=== PATIENT | female | born 1950 | race Two or more races ===

== ENCOUNTER 2025-02-12 12:52 | Emergency (ER) | payer MEDICARE, MEDICAID, SELFPAY ==
[2025-02-12] VITALS (7 sets, daily range): BP systolic 118–149; BP diastolic 61–76; PULSE 64–85; RESP 16–18; TEMP 36.6–36.8; O2SAT 96–100; BMI 24.3
--- NOTE | 2025-02-12 14:03 | XR_ITS ---
Examination: CT abdomen with intravenous contrast CT pelvis with intravenous contrast 2-D coronal reconstructions 2-D sagittal reconstructions Date and time of exam:February 12, 2025, 1601 hours Comparison February 21, 2024 INDICATIONS: Onset abdominal pain today. CTDI: vol (mGy) 6.5 DLP: (mGycm) 306 Technique: Multiple axial sections of the abdomen and pelvis have been obtained. 64 slice high-resolution scanner used. 3 mm axial sections have been obtained, post intravenous injection 60 cc of Isovue 370 2-D sagittal, coronal reconstructions obtained. Low dose protocols were performed. One or more of the following dose reduction techniques were used; automated exposure control, adjustment of the mA and/or KV according to patient size, use of iterative reconstruction technique. Findings: Hepatomegaly 19 cm Multiple liver cysts. No intrahepatic biliary tract dilatation Spleen is not enlarged No gallstones No pancreatic mass No adrenal mass No renal or ureteral calculi, no hydronephrosis No bowel obstruction No pericecal inflammatory change, normal appendix coronal image 66 No bowel obstruction Scattered colonic diverticulosis, no diverticulitis Urinary bladder is intact Absent uterus Advanced degenerative disc disease L4-L5 IMPRESSION: Hepatomegaly, 19 cm No renal or ureteral calculi, no hydronephrosis No bowel obstruction Normal appendix No diverticulitis Advanced degenerative disc disease L4-L5
--- NOTE | 2025-02-12 14:04 | XR_ITS ---
Examination: Abdomen sonogram, Limited Date and time of exam: February 12, 2025 1456 hrs. Indications: Onset abdominal pain today Technique: Real-time mariscal scale transabdominal sonographic images of the upper abdomen obtained. Findings: Normal gallbladder Normal common bile duct 0.2 cm Pancreatic head 2.1 cm Liver 16.1 cm liver cysts, the largest in the right lobe 3.6 cm Normal hepatopedal portal venous oh Patent IVC Impression: Normal gallbladder Normal common bile duct
--- NOTE | 2025-02-12 14:04 | EKG_ITS ---
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
--- NOTE | 2025-02-12 14:05 | EDNOTE_ITS ---
ED Abdominal Pain RME/HPI General Chief Complaint: Abdominal Pain Stated complaint: Abdominal pain, vomiting Time seen by provider: 02/12/25 13:16 Arrival date/time: 02/12/25 12:52 RME / HPI RME / HPI narrative: 74-year-old female patient with significant history of hypertension, came in for evaluation regarding abdominal pain. Patient has been having abdominal pain since 1:00 this morning, described as diffuse, severity moderate associated with 2 episode of vomiting. Patient also had 2 episode of diarrhea. Nonbloody. Denies any fever denies any shortness of breath denies any other complaints no medications taken prior to arrival. Patient had endoscopy done 3 weeks ago in [place]. No results called yet. Abdominal surgery include hysterectomy Related Data Previous Rx's ?Medication ?Instructions ?Recorded cefuroxime axetil 500 mg tablet 500 mg PO BID #14 tabs 02/12/23 dicyclomine 20 mg tablet 20 mg PO QID PRN abdominal p ain 02/21/24 #14 tabs cefdinir 300 mg capsule 300 mg PO BID #14 caps 02/12 dicyclomine 20 mg tablet 20 mg PO QID PRN abdominal p ain 02/12/25 #30 tabs polyethylene glycol 3350 17 4 g PO QDAY #238 grams gram/dose oral powder (Miralax) Allergies Allergy/AdvReac Type Severity Reaction Status Date / Time codeine Allergy Mild Difficulty Verified 02/12/25 12:58 Swallowing acetaminophen (From Tylenol) Allergy Verified 02/12/25 12:58 Review of Systems Review of Systems Narrative Review of Systems: Review of system reviewed and within normal limits except mentioned in HPI ED Exam Narrative Physical exam: VITAL SIGNS: Reviewed. GENERAL APPEARANCE: Alert and interactive, follows commands, no acute distress, HEAD AND FACE: Non-traumatic. ENT: PERRL, pink conjunctivitis, eyelid no trauma, Mucous membrane moist. NECK: Supple, nontender, no nuchal rigidity. CHEST: No tenderness, no crepitus, no paradoxical movement, no retractions. LUNGS: Clear, well ventilated, symmetric, no rales, no wheezing, no ronchi, no stridor, good breath sounds bilaterally. HEART: Regular rate, regular rhythm, no murmur, no gallops. ABDOMEN: Soft, positive bowel sounds, nondistended, no guarding, diffuse tenderness, no rebound, no masses, RECTAL: Deferred. GENITAL: Deferred. NEUROLOGICAL: Gross motor function intact sensory function intact, Appropriate for age. MUSCULOSKELETAL: low back nontender, full range of motion. EXTREMITIES: Nontender, full range of motion. SKIN: Color pink, dry, no rash, no lacerations, no abrasions, no contusions. LYMPHATICS: Deferred. Course Quality Measures none Orders Category Date Time Status CT Screening NOW Care 02/12/25 14:04 Active EKG (ED ONLY) *Do not use* NOW Care 02/12/25 14:[address] abdomen pelvis w con Stat Exams 02/12/25 14:03 Completed EKG (ED Only) Stat Exams 02/12/25 14:04 Draft US gall bladder Stat Exams 02/12/25 14:04 Completed CBC Stat Lab 02/12/25 14:15 Completed Comprehensive Metabolic Panel Stat Lab 02/12/25 14:15 Completed Lipase Stat Lab 02/12/25 14:15 Completed Partial Thromboplastin Time Stat Lab 02/12/25 14:15 Completed Prothrombin Time with INR Stat Lab 02/12/25 14:15 Completed UA, C/S IF [Urinalysis, C/S if Indicated] Stat Lab 02/12/25 14:55 Completed Urine Culture Stat Lab 02/12/25 14:55 Received HYDROmorphone INJ [Dilaudid Inj] Med 02/12/25 17:48 Discontinued 1 mg IVP X1 ONE Ketorolac Inj [Toradol Inj] Med 02/12/25 14:04 Discontinued 15 mg IVP X1 ONE Ondansetron Inj [Zofran Inj] Med 02/12/25 14:04 Discontinued 4 mg IVP X1 ONE cefTRIAXone/D5w 1gm IV premix [Rocephin/D5w 1gm IV Med 02/12/25 17:47 Discontinued premix] 1 gm in 50 ml IV X1 Vital Signs Vital signs: Vital Signs Temperature 98.2 F 02/12/25 13:50 Pulse Rate 85 02/12/25 13:50 Respiratory Rate 16 02/12/25 13:50 Blood Pressure 133/76 H 02/12/25 13:50 Pulse Oximetry (%) 99 02/12/25 13:50 Oxygen Delivery Method Room Air 02/12/25 13:50 Abdominal Pain MDM MDM Narrative MDM Narrative:: 74-year-old female patient with significant history of hypertension, came in for evaluation regarding abdominal pain. Patient has been having abdominal pain since 1:00 this morning, described as diffuse, severity moderate associated with 2 episode of vomiting. Patient also had 2 episode of diarrhea. Nonbloody. Denies any fever denies any shortness of breath denies any other complaints no medications taken prior to arrival. Patient had endoscopy done 3 weeks ago in [place]. No results called yet. Abdominal surgery include hysterectomy EKG as interpreted by me showed sinus rhythm, ventricular to 79 bpm, no ST segment elevation or depression noted. Laboratory Is significant for slight leukocytosis, urinalysis positive for UTI lipase normal ultrasound the gallbladder came back unremarkable CT scan of the abdomen pelvis showed Hepatomegaly, 19 cm No renal or ureteral calculi, no hydronephrosis No bowel obstruction Normal appendix No diverticulitis Advanced degenerative disc disease L4-L5 Patient was given , ceftriaxone IV Dilaudid and Toradol with significant pelvic pain. Patient data External records reviewed:: None Clinical information provided by:: patient Social determinants that could affect healthcare access:: none Patient has the following chronic illnesses:: Hypertension How is presenting disease/condition affected by chronic disease/condition?: no chronic disease Evaluation data The following diagnostics were reviewed and interpreted by me:: lab results, radiology exam(s) and EKG tracing(s) Lab and/or radiology exams considered but not ordered:: None Interpretation Summary: See results [facility] Medications / Prescriptions Medications or Prescriptions considered but not ordered:: None Medication administrations:: Medication Administration History Discontinued Medications Hydromorphone HCl (Hydromorphone Inj 2 Mg/Ml Vial) 1 mg IVP X1 ONE Stop: 02/12/25 17:49 Last Admin: 02/12/25 17:54 Dose: 1 mg Documented By: VL Ceftriaxone Sodium/Dextrose (Rocephin/D5w 1gm Iv Premix) 1 gm in 50 mls @ 100 mls/hr IV X1 ONE Stop: 02/12/25 18:16 Last Infusion: 02/12/25 18:24 Dose: Infused Documented By: Admin: 02/12/25 17:54 Dose: 100 mls/hr Documented By: LINDSAY Ketorolac Tromethamine (Ketorolac Inj 30 Mg/Ml Vial) 15 mg IVP X1 ONE Stop: 02/12/25 14:05 Last Admin: 02/12/25 15:35 Dose: 15 mg Documented By: EF Ondansetron HCl (Ondansetron Inj 2 Mg/Ml Inj 2 Ml) 4 mg IVP X1 ONE; Protocol Stop: 02/12/25 14:05 Last Admin: 02/12/25 15:36 Dose: 4 mg Documented By: EF Dilaudid, Toradol, ceftriaxone and IV Zofran Consultations Consultation(s) initiated? (list below): No Consultation #1 (Physician, Specialty, Details): None Diagnosis Differential diagnosis abdominal pain: abdominal pain and diverticulitis Most likely diagnosis given after review of the tests above:: UTI, abdominal pain Admission Indicated Admission indicated?: not indicated Explain why admission is indicated or not indicated:: None Admission Request Was there a request for admission?: No Disposition Plan Disposition Plan: Discharge Discharge Attestation Discharge Attestation: The patient and all family members were given an opportunity to ask questions and understood the discharge instructions. Discharge instructions specifically effects, indications for sooner follow up or return to the emergency department, and the expected course of current diagnosis. Patient condition: Stable Discharge Plan Plan Patient Disposition: HOME (Self Care) Discharge Disposition comment: Stable Prescriptions/Referrals Prescriptions/Med Rec: New cefdinir 300 mg capsule 300 mg PO BID Qty: 14 0RF dicyclomine 20 mg tablet 20 mg PO QID PRN (Reason: abdominal pain) Qty: 30 0RF polyethylene glycol 3350 [Miralax] 17 gram/dose powder 4 g PO QDAY Qty: 238 0RF No Action cefuroxime axetil 500 mg tablet 500 mg PO BID Qty: 14 0RF dicyclomine 20 mg tablet 20 mg PO QID PRN (Reason: abdominal pain) Qty: 14 0RF Referrals: Arline Huynh FNP ([facility]) [Primary Care Provider] - In 1 week Problem List Clinical Impression: Abdominal pain, UTI (urinary tract infection) Patient/Caregiver Discharge Instructions Discharge Activity: activity as tolerated Education Materials: Abdominal Pain Additional Instructions: Thank you for the opportunity for serving you today. You are stable for discharged . You are advised to: Follow-up with your PCP in 1 to 2 days Return to ED for worsening of symptoms Increase oral fluids Take medication as prescribed Print Language: Marshallese Stand Alone Forms: Divine Award Info., Patient Portal Info Letter CURT/CHRISTOPHER Supervising Physician PA/ROOFER HELPER Supervising Physician: MD Patti
[2025-02-12 14:24] LABS: Basophils # (Auto) 0.1 Thou/mm3 (0.0-0.2); Basophils % (Auto) 1 % (0-2.5); Eosinophils # (Auto) 0.1 Thou/mm3 (0.0-0.5); Eosinophils % (Auto) 0 % (0-10); Hematocrit 34.1 % (36.0-46.0); Hemoglobin 11.4 g/dL (12.0-16.0); Immature Granulocytes % (Auto) 0 % (0-0); Immature Granulocytes Auto 0.05 Thou/mm3 (0.00-0.00); Lymphocytes % (Auto) 9 % (10-50); Mean Corpuscular HGB Conc 33.4 g/dl (31.0-37.0); Mean Corpuscular Hemoglobin 29.6 pg (25.0-35.0); Mean Corpuscular Volume 89 fL (80-100); Monocytes # (Auto) 0.9 Thou/mm3 (0.0-0.8); Monocytes % (Auto) 7 % (0-12); Neutrophils # (Auto) 9.4 Thou/mm3 (1.8-7.7); Neutrophils % (Auto) 82 % (37-80); Nucleated Red Blood Cell % 0 /100 WBC (0); Platelet Count 278 Thou/mm3 (140-440); Red Blood Count 3.85 Miln/mm3 (4.00-5.20); White Blood Count 11.5 Thou/mm3 (3.6-11.0)
[2025-02-12 14:39] LABS: Partial Thromboplastin Time 22.6 Seconds (22.0-36.0); Prothrombin Time 11.2 Seconds (9.0-12.2)
[2025-02-12 14:42] LABS: Alanine Aminotransferase 17 U/L (10-49); Albumin, Serum 4.8 gm/dL (3.4-4.8); Albumin/Globulin Ratio 1.8 (1.2-2.2); Alkaline Phosphatase 65 U/L (46-116); Anion Gap 9 (7-16); Aspartate Amino Transferase 19 U/L (0-34); BUN/Creatinine Ratio 21 Ratio (12-20); Bilirubin,Total 0.5 mg/dL (0.3-1.2); Blood Urea Nitrogen 17 mg/dL (9-23); Calcium 9.3 mg/dL (8.3-10.6); Calcium (Corrected) 9.3 mg/dL (8.5-10.1); Chloride 105 mMol/L (98-107); Creatinine (Component) 0.8 mg/dL (0.6-1.3); Estimated Creatinine Clearance 51.7 mL/min (>60); Globulin 2.6 gm/dL (2.3-3.5); Glucose 107 mg/dL (74-106); Lipase 38 U/L (12-53); Osmolality,Calculated 280 (275-295); Potassium 4.5 mMol/L (3.4-5.1); Sodium 140 mMol/L (136-145); Total Protein 7.4 gm/dL (5.7-8.2); eGFR > 60 See Note
[2025-02-12 15:04] LABS: Collection Type, Urine Clean Catch
[2025-02-12 15:17] LABS: Bilirubin,Urine Negative (Negative); Blood,Urine Negative (Negative); Clarity,Urine Clear (Clear/Hazy); Color,Urine Yellow (Lt Yel-Yel); Glucose, Urine Negative (Negative); Ketones,Urine Negative (Negative); Leukocyte Esterase,Urine Positive (Negative); Nitrite,Urine Negative (Negative); Protein,Urine Negative (Neg - Trace); RBC,Urine 4 /hpf (0-3); Specific Gravity,Urine 1.025 (1.001-1.035); Squamous Epithelial Cell,Urine < 1 /hpf (0-5); Urobilinogen,Urine Negative mg/dL (0.0-1.0); WBC,Urine 19 /hpf (0-5)
[2025-02-12 15:21] LABS: Culture Indicated,Urine Yes
[2025-02-12] MEDS: KETOROLAC INJ 30 MG/ML VIAL 15 MG IVP (15:35)
[2025-02-12] MEDS: ONDANSETRON INJ 2 MG/ML INJ 2 ML 4 MG IVP (15:36)
[2025-02-12] MEDS: cefTRIAXone/D5w 1gm IV premix 1 GM/50 ML BAG IV (17:54)
[2025-02-12] MEDS: HYDROmorphone INJ 2 MG/ML VIAL 1 MG IVP (17:54)
== END 2025-02-12 20:20 | disposition home or self-care (01) ==
PROVIDERS: Nurse Practitioner Family; Emergency Provider Emergency Medicine; PCP Nurse Practitioner Primary Care
DX: N39.0 Urinary tract infection, site not specified (principal); R10.9 Unspecified abdominal pain; R94.31 Abnormal electrocardiogram [ECG] [EKG]; I10 Essential (primary) hypertension; M51.369 Other intervertebral disc degeneration, lumbar region without mention of lumbar back pain or lower extremity pain
CPT/HCPCS: 36415; 74177; 76705; 80053; 81001; 83690; 85025; 85610; 85730; 87086; 93005; 96365; 96375; 99285; A4649; J0696; J1171; J1885; J2405; Q9967

== ENCOUNTER 2025-05-29 18:18 | Emergency (ER) | payer MEDICARE, MEDICAID, SELFPAY ==
[2025-05-29 18:26] VITALS: PULSE 92; RESP 22; O2SAT 98
[2025-05-29 18:29] VITALS: BP 142/77; PULSE 71; RESP 15; TEMP 36.8; O2SAT 96
--- NOTE | 2025-05-29 18:42 | EKG_ITS ---
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
--- NOTE | 2025-05-29 18:44 | PD.EDADULT ---
ED General RME/HPI General Chief complaint: Abdominal Pain Stated complaint: ABD PAIN Time Seen by Provider: 05/29/25 18:39 Arrival date/time: 05/29/25 18:18 CC: Epigastric pain HPI onset approximately 4 this afternoon with mild radiation up into the chest. Prior history of similar events patient denies fever chills shortness of breath or difficulty breathing. Patient stated initially the pain was an 8 to a 10 on a 10 scale currently is a 2 on a 10 scale. Patient was given Zofran for nausea and route. She is currently not in any acute distress. Related Data Previous Rx's ?Medication ?Instructions ?Recorded cefuroxime axetil 500 mg tablet 500 mg PO BID #14 tabs 02/12/23 dicyclomine 20 mg tablet 20 mg PO QID PRN abdominal pain 02/21/24 #14 tabs cefdinir 300 mg capsule 300 mg PO BID #14 caps 02/12/25 dicyclomine 20 mg tablet 20 mg PO QID PRN abdominal pain 02/12/25 #30 tabs polyethylene glycol 3350 17 4 g PO QDAY #238 grams 02/12/25 gram/dose oral powder (Miralax) pantoprazole 20 mg tablet,delayed 20 mg PO QDAY #20 tabs 05/29/25 release (Protonix) Allergies Allergy/AdvReac Type Severity Reaction Status Date / Time codeine Allergy Mild Difficulty Verified 02/12/25 12:58 Swallowing acetaminophen (From Tylenol) Allergy Verified 02/12/25 12:58 Review of Systems Review of Systems Narrative Review of Systems: GEN: No fever, no chills, no weight loss EYES: No discharge, no visual changes, no pain HEENT: No ear pain, no congestion, no sore throat PULM: No shortness of breath, no cough, no congestion CV: No chest pain, no dyspnea on exertion, no palpitations GI: No nausea, no vomiting, no diarrhea, + pain, no constipation : No frequency, no urgency, no dysuria MUSC/SKEL: No joint pain, no back pain SKIN: No rash PSYCH: No hallucinations, no depression HEME/LYMPH: No easy bleeding or bruising tendencies NEURO: No weakness, no headache Past Medical History Past Medical History NEUROLOGIC: Negative Neurological Disorders CARDIAC: Positive Hypercholesterolemia and Hypertension; Negative Cardiac Disorders or Congestive Heart Failure RESPIRATORY: Negative Chronic Obstructive Pulmonary Disease (COPD) or Asthma GASTROINTESTINAL: Positive Gastroesophageal Reflux Disease GENITOURINARY: Negative Renal Disease ENDOCRINE: Negative Diabetes Mellitus Type 1 or Diabetes Mellitus Type 2 HEMATOLOGIC: Negative Sickle Cell Disease PSYCHO/SOCIAL: Positive Depression Surgical History SURGICAL: Positive Hysterectomy Social History SMOKING STATUS: Never smoker SUBSTANCE USE: does not use ED Exam Narrative Physical exam: [General: Not in any acute distress Head normocephalic HEENT: Within acceptable limits Neck is supple nontender Chest equal chest rise nontender to palpation Respiratory: Clear to auscultation no wheezes crackles or rubs CV: Rate rhythm is regular no murmurs rubs or clicks Abdomen is soft mild epigastric tenderness with palpation no reflexive guarding no rebound tenderness. No lower quadrants left upper or right upper quadrant pain with palpation. Back: No CVA tenderness no spinous process tenderness from cervical spine thoracic and lumbar spine Skin: Intact no petechiae rash induration ulceration or crepitus Extremities: Moving all extremity against resistance cap refill less than 2 seconds neurosensory intact Neuro: Awake alert oriented x3 Glascow coma 15 no focal deficits] Course Course Course Narrative: Patient's laboratory findings and imaging are wholly unremarkable patient will be discharged home with epigastric pain we will start her on Protonix. Quality Measures none Orders Category Date Time Status EKG (ED ONLY) *Do not use* NOW Care 05/29/25 18:[address] abdomen pelvis wo con Stat Exams 05/29/25 19:41 Completed EKG (ED Only) Stat Exams 05/29/25 18:42 Draft CBC Stat Lab 05/29/25 18:57 Completed CMP [Comprehensive Metabolic Panel] Stat Lab 05/29/25 18:57 Completed Lipase Stat Lab 05/29/25 18:57 Completed Urinalysis Stat Lab 05/29/25 19:45 Completed Lidocaine 2% Viscous [Xylocaine 2% Viscous] Med 05/29/25 18:42 Discontinued 15 ml PO X1 ONE mg Hyd/Al Hyd/Felicita Susp [Maalox Susp] Med 05/29/25 18:42 Discontinued 30 ml PO X1 ONE Vital Signs Vital signs: Vital Signs Temperature 98.3 F 05/29/25 18:29 Pulse Rate 71 05/29/25 18:29 Respiratory Rate 15 05/29/25 18:29 Blood Pressure 142/77 H 05/29/25 18:29 Pulse Oximetry (%) 96 05/29/25 18:29 Oxygen Delivery Method Room Air 05/29/25 18:29 Discharge Plan Plan Patient Disposition: HOME (Self Care) Patient condition on transfer: Stable Prescriptions/Referrals Prescriptions/Med Rec: New pantoprazole [Protonix] 20 mg tablet,delayed release (DR/EC) 20 mg PO QDAY Qty: 20 0RF No Action cefuroxime axetil 500 mg tablet 500 mg PO BID Qty: 14 0RF dicyclomine 20 mg tablet 20 mg PO QID PRN (Reason: abdominal pain) Qty: 14 0RF cefdinir 300 mg capsule 300 mg PO BID Qty: 14 0RF dicyclomine 20 mg tablet 20 mg PO QID PRN (Reason: abdominal pain) Qty: 30 0RF polyethylene glycol 3350 [Miralax] 17 gram/dose powder 4 g PO QDAY Qty: 238 0RF Referrals: No Primary/Family,Physician [Primary Care Provider] - In 1 week Cecilio Wilson MD [Physician, Gastroenterology] - In 1 week Problem List Clinical Impression: Epigastric pain Patient/Caregiver Discharge Instructions Education Materials: ED Epigastric Pain (Uncertain Cause) Additional Instructions: Consider bland diet take the medications as prescribed with is worsening of symptoms follow-up with your primary care doctor or return the emergency room for reevaluation. Print Language: Slovenian Stand Alone Forms: Divine Award Info., Patient Portal Info Letter PA/AQUATICS COORDINATOR Supervising Physician PA/AQUATICS COORDINATOR Supervising Physician: Beau Anderson ENP [facility] Clinical Information Provided by: patient and EMS Medical [facility] Meds/Rx considered, not ordered None Labs/Rad/Tests considered, not ordered None Chronic Illness/Social Conditions which may negatively complicate care or outcome(s)-explain: None or not applicable EKG Interpretation EKG #1: EKG Interpretation: EKG performed at 1857 shows a ventricular rate of 6 7 AR interval 165 QRS of 86 QTc of 424 this is sinus rhythm. Labs Labs: interpreted by [facility] Lab(s) Interpretation(s): CBC shows no acute leukocytosis the patient has anemia with a hemoglobin of 9.6 and hematocrit of 29.4. No thrombocytopenia CMP shows a chloride of 110 no other electrolyte imbalances renal impairment transaminitis or T. bili elevation. Lipase within acceptable limits Urine shows no acute finding suggestive of UTI. Imaging Imaging interpretation: interpreted by [facility] Imaging Interpretation(s): CT of the abdomen shows no acute finding requires emergent or immediate intervention. Medication Administration(s) Medication Administration History Discontinued Medications Al Hydrox/Mg Hydrox/Simethicone (Mg Hyd/Al Hyd/Felicita (Maalox Reg) Susp 30 Ml Udc) 30 ml PO X1 ONE Stop: 05/29/25 18:43 Last Admin: 05/29/25 19:47 Dose: 30 ml Documented By: KOREY Lidocaine HCl (Lidocaine Viscous 2% 15 Ml Udc) 15 ml PO X1 ONE Stop: 05/29/25 18:43 Last Admin: 05/29/25 19:47 Dose: 15 ml Documented By: KOREY
[2025-05-29 19:02] LABS: Basophils # (Auto) 0.0 Thou/mm3 (0.0-0.2); Basophils % (Auto) 1 % (0-2.5); Eosinophils # (Auto) 0.0 Thou/mm3 (0.0-0.5); Eosinophils % (Auto) 1 % (0-10); Hematocrit 29.4 % (36.0-46.0); Hemoglobin 9.6 g/dL (12.0-16.0); Immature Granulocytes Auto 0.02 Thou/mm3 (0.00-0.00); Lymphocytes # (Auto) 0.9 Thou/mm3 (1.0-4.8); Lymphocytes % (Auto) 18 % (10-50); Mean Corpuscular HGB Conc 32.7 g/dl (31.0-37.0); Mean Corpuscular Hemoglobin 30.1 pg (25.0-35.0); Mean Corpuscular Volume 92 fL (80-100); Monocytes # (Auto) 0.5 Thou/mm3 (0.0-0.8); Monocytes % (Auto) 10 % (0-12); Neutrophils # (Auto) 3.8 Thou/mm3 (1.8-7.7); Neutrophils % (Auto) 71 % (37-80); Nucleated Red Blood Cell # 0.00 Thou/mm3 (0.00-0.00); Nucleated Red Blood Cell % 0 /100 WBC (0); Platelet Count 177 Thou/mm3 (140-440); RDW Standard Deviation 42.2 fL (36.4-46.3); Red Blood Count 3.19 Miln/mm3 (4.00-5.20); White Blood Count 5.4 Thou/mm3 (3.6-11.0)
[2025-05-29 19:32] LABS: Alanine Aminotransferase 8 U/L (10-49); Albumin, Serum 4.1 gm/dL (3.4-4.8); Albumin/Globulin Ratio 1.8 (1.2-2.2); Alkaline Phosphatase 61 U/L (46-116); Anion Gap 8 (7-16); Aspartate Amino Transferase 14 U/L (0-34); BUN/Creatinine Ratio 13 Ratio (12-20); Bilirubin,Total 0.5 mg/dL (0.3-1.2); Blood Urea Nitrogen 10 mg/dL (9-23); Calcium 8.8 mg/dL (8.3-10.6); Calcium (Corrected) 8.8 mg/dL (8.5-10.1); Carbon Dioxide 24.8 mMol/L (20.0-31.0); Chloride 110 mMol/L (98-107); Creatinine (Component) 0.8 mg/dL (0.6-1.3); Globulin 2.3 gm/dL (2.3-3.5); Glucose 101 mg/dL (74-106); Lipase 35 U/L (12-53); Osmolality,Calculated 283 (275-295); Potassium 4.1 mMol/L (3.4-5.1); Sodium 143 mMol/L (136-145); Total Protein 6.4 gm/dL (5.7-8.2); eGFR > 60 See Note
--- NOTE | 2025-05-29 19:41 | XR_ITS ---
Examination: CT abdomen and pelvis without contrast. Coronal 3-D reconstructions. Sagittal 2-D reconstructions. Date and time of exam:May 29, 2025, 1937 hrs., Comparison February 12, 2025 Indications: Upper abdominal pain with nausea today CTDI: vol (mGy): 6.06 DLP: (mGycm): 304 Technique: Axial images of the abdomen have been obtained, 3 mm slice thickness Intravenous contrast material has not been administered. Low dose protocols were performed. One or more of the following dose reduction techniques were used; automated exposure control, adjustment of the mA and/or KV according to patient size, use of iterative reconstruction technique. Findings: Multiple liver cysts No gallstones Spleen is not enlarged No pancreatic or adrenal mass 2 mm lower pole left renal calculus image 79 moderate left renal parenchymal scar formation Aorta normal size No pericecal inflammatory change No bowel obstruction No diverticulitis Urinary bladder intact Advanced degenerative disc disease L4-L5 Impression: 2 mm nonobstructing lower pole left renal calculus Moderate left renal parenchymal scar formation, no hydronephrosis or ureteral calculi No CT findings of appendicitis bowel obstruction or diverticulitis Given the patient's presentation, consider hepatobiliary sonography follow-up
[2025-05-29] MEDS: LIDOCAINE VISCOUS 2% 15 ML UDC PO (19:47)
[2025-05-29] MEDS: MG HYD/AL HYD/SIME (Maalox Reg) SUSP 30 ML UDC PO (19:47)
[2025-05-29 19:56] LABS: Collection Type, Urine Clean Catch; Squamous Epithelial Cell,Urine 0 /hpf (0-5)
[2025-05-29 19:59] LABS: Bilirubin,Urine Negative (Negative); Blood,Urine Negative (Negative); Clarity,Urine Clear (Clear/Hazy); Color,Urine Colorless (Lt Yel-Yel); Glucose, Urine Negative (Negative); Ketones,Urine Negative (Negative); Leukocyte Esterase,Urine Negative (Negative); Nitrite,Urine Negative (Negative); PH,Urine 6.0 (5.0-7.0); Protein,Urine Negative (Neg - Trace); RBC,Urine < 1 /hpf (0-3); Specific Gravity,Urine 1.005 (1.001-1.035); Urobilinogen,Urine Negative mg/dL (0.0-1.0); WBC,Urine 1 /hpf (0-5)
[2025-05-29 22:50] VITALS: BP 124/78; PULSE 75; RESP 16; TEMP 36.7; O2SAT 97
== END 2025-05-29 22:51 | disposition home or self-care (01) ==
PROVIDERS: Registered Nurse General Practice; Emergency Provider Emergency Medicine
DX: R10.13 Epigastric pain (principal)
CPT/HCPCS: 36415; 74176; 80053; 81001; 83690; 85025; 99284; J3490; A9270